=== PATIENT | male | born 1995 | race Caucasian/White ===

== ENCOUNTER 2024-01-10 09:51 | Outpatient (AMB) | payer BC, SELFPAY ==
[2024-01-10 10:05] VITALS: BP 100/68; PULSE 60; O2SAT 98; BMI 28.1
--- NOTE | 2024-01-10 10:05 | MHC.PC.OV ---
Vital Signs 01/10/24 10:05 Height 5 ft 9 in Weight 190 lb 4 oz BMI 28.1 BP 100/68 Blood Pressure Location Lt brachial Pulse 60 Pulse Source Pulse Oximeter Pulse Oximetry (%) 98 Oxygen Delivery Method Room Air Intake Visit Reasons: [employer], request a physical Intake Note: Patient is here as a new patient, would like a physical. Orthostatic vitals are as follows, laying, 112/62, p53, sitting, 118/72, p67, and standing 120/68 p81. Allergies No Known Allergies Allergy (Verified 01/10/24 10:10) Medication List - Last Reconciled 01/10/24 by Red Lema MD No Known Home Meds Tobacco use date assessed: 01/10/24 Dental Screening Dental Screen Date: 01/10/24 Did you have a dental visit in the last 12 months?: No Did you have a dental problem in the last 6 months where you did not have access to dental care?: No Was dental information given to patient?: Patient has dentist HPI [employer], request a physical HPI Details New Patient? ?? Prior PCP:? Clover Mooney Last office visit/CPE:? 5 + yrs ago Acute issue(s):? Occasional vertigo ?? PMHx:? SurgHx:? FHx:?Dad: DM. Paternal Uncles: DM. 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 EtOH: casual. No drugs [facility] Medical History (Updated 01/10/24 @ 10:42 by Breezy Siddiqi) Collar bone fracture Surgical History (Updated 01/10/24 @ 10:15 by Li Larson CMA) No pertinent past surgical history Family History (Updated 01/10/24 @ 10:18 by Li Larson CMA) Father Diabetes Mental health disorder Paternal Aunt Diabetes Paternal Uncle No problems noted. Paternal Grandfather Substance abuse in family Social History (Updated 01/10/24 @ 10:21 by Li Larson CMA) Household Members: None Both parents involved: No Caregiver staying overnight: No Housing: Condominium Are you a primary child care team lead to a significant other at home: No Do you presently have visiting nurse or other home services: No 75 years or older and lives alone: No Alcohol intake: current Alcohol type: beer Comment: weekends Patient Tobacco Use Status: Never used Tobacco e-Cigarette/Vaping Use: Never Used Use of substances other than those prescribed or required for medical reasons: No Have you been hit, kicked, punched, or otherwise hurt by someone within the past year? If so, by whom?: No Do you feel safe in your current relationship?: Yes Is there a partner from a previous relationship who is making you feel unsafe now?: No Are you made to feel afraid or neglected: No Special john needs: No Agree to transfusion: Yes Are you DNR?: No Advance Directives: No Advance Directives Information Provided: No Advance Directives on File: No Healthcare Proxy: No service: No Current occupational status: employed Current occupation: works for contractor Cognitive needs: No Hearing needs: No Vision needs: No Questionnaire PHQ-9 Over the last 2 weeks, how often have you been bothered by any of the following problems? 1. Little interest or pleasure in doing things: not at all 2. Feeling down, depressed, or hopeless: not at all 3. Trouble falling or staying asleep, or sleeping too much: several days 4. Feeling tired or having little energy: several days 5. Poor appetite or overeating: not at all 6. Feeling bad about yourself - or that you are a failure or have let yourself or your family down: not at all 7. Trouble concentrating on things, such as reading the newspaper or watching television: not at all 8. Moving or speaking so slowly that other people could have noticed. Or the opposite - being so fidgety or restless that you have been moving around a lot more than usual: not at all 9. Thoughts that you would be better off or of hurting yourself in some way: not at all Total score: 2 Depression Screening Interpretation: Negative Depression Screening Done: Yes 08941 - PHQ-9 Billing: Yes Source: Developed by Drs. Adonis Brush, Jessica Bullock, Aneesh Wang and colleagues, with an educational sedrick from [employer]. Thrive Questionnaire Date Thrive assessed: 01/10/24 I am a: Patient Within the past 12 months, did the food you bought not last and you didn't have the money to get more?: Never true Within the past 12 months, did you worry whether your food would run out before you got money to buy more?: Never true Do you have trouble paying for medicines?: No Do you have trouble getting transportation to medical appointments?: No Do you have trouble paying your heating and electricity bill?: No Do you have trouble taking care of your child, family member or friend?: No Do you have trouble with day-to-day activities such as bathing, preparing meals, shopping, managing finances, etc.?: No Are you currently unemployed and looking for a job?: No Are you interested in more education?: No THRIVE Score: 0 BEE-7 AMB Questionnaire BEE-7 Date BEE - 7 assessed: 01/10/24 Feeling nervous, anxious, or on edge: 0 = Not at all Not being able to stop or control worryin = Not at all Worrying too much about different things: 0 = Not at all Trouble relaxin = Not at all Being so restless that it is hard to sit still: 0 = Not at all Becoming easily annoyed or irritable: 0 = Not at all Feeling afraid as if something awful might happen: 0 = Not at all Total BEE-7 score (0-4 normal; 5-9 mild; 10-14 moderate; 15-21 severe): 0 Source: Developed by Drs. Adonis Brush, Jessica Bullock, Aneesh Wang and colleagues, with an educational sedrick from [employer]. BEE-7 Assessment Billing BEE-7 Assessment Tool: BEE-7 Assessment 06875 Review of Systems Const Denies chills, Denies fatigue, Denies fever(s), Denies headache(s) and Denies weakness Eyes Denies change in vision ENT Denies dizziness, Denies headache(s), Denies hearing loss, Denies nasal congestion, Denies sinus pain, Denies sinus pressure and Denies sore throat Card Denies chest pain, Denies lightheadedness, Denies dyspnea and Denies other (palpitations) Resp Denies cough, Denies dyspnea and Denies wheezing GI Denies abdominal pain, Denies melena, Denies hematochezia, Denies change in bowel habits, Denies dyspepsia and Denies nausea Denies hematuria and Denies dysuria Musc Denies abnormal gait, Denies myalgias, Denies arthralgias, Denies numbness and Denies tingling Skin/Breast Denies rash, Denies unusual bruising and Denies wounds Neuro Denies abnormal gait, Denies dizziness, Denies headache(s), Denies memory loss, Denies numbness, Denies Sensory deficit (Neuro), Denies tingling and Denies weakness Psych Denies anxiety, Denies depression and Denies memory loss Endo Denies cold intolerance, Denies fatigue, Denies heat intolerance, Denies polydipsia and Denies polyuria Jan/Lymph Denies easy bleeding and Denies easy bruising Aller/Immun Denies wheezing Physical exam (Primary Care) Vital Signs: Last Vital Signs Pulse 60 01/10/24 10:05 BP 100/68 01/10/24 10:05 Pulse Ox 98 01/10/24 10:05 Oxygen Delivery Method Room Air 01/10/24 10:05 BMI result Body Mass Index 28.1 Tobacco/Smoking Status: Tobacco use Status Tobacco use date assessed 01/10/24 01/10/24 10:17 Patient Tobacco Use Status Never used Tobacco 01/10/24 10:21 e-Cigarette/Vaping Use Never Used 01/10/24 10:21 PHQ-9: PHQ-9 Score PHQ-9: Total score 2 01/10/24 10:36 Depression Screening Interpretation: Negative Thrive Assessment: Date of Thrive Assessment Date Thrive assessed 01/10/24 01/10/24 10:26 Const General: no acute distress, well developed, alert and awake Nutritional Appearance: well nourished Orientation/consciousness: patient oriented x3 HENMT Head: Yes normocephalic and Yes atraumatic Ears: hearing grossly normal bilaterally and TM's normal bilaterally General nose exam: Normal external nose present and Normal nares present Mouth: Normal oral and palatal mucosa present and moist mucous membranes Teeth and gingiva: dentition normal Throat: Yes posterior oropharynx normal Eyes General: appearance normal, both eyes and all related structures Pupils: Equal, round and reactive pupils present and Pupil accommodation reflex normal EOM: EOMs intact bilaterally Neck Neck: Yes normal visual inspection, Yes no lymphadenopathy and Yes trachea midline Thyroid: Thyroid normal Carotids: no bruits Lymphatic: no lymphadenopathy noted Chest Chest palpation & inspection: normal inspection of the chest Resp Effort & Inspection: normal respiratory effort Auscultation: clear to auscultation bilaterally Cardio Rate: regular rate Rhythm: regular rhythm Heart sounds: S1 normal heart sound present, S2 normal heart sound present, no gallops, no murmurs and no rubs Bruits: no abdominal aortic bruits and no carotid bruits GI Palpation (GI): No Abdominal aortic bruit present, Soft to palpation, nontender, No hepatosplenomegaly present and No Rebound tenderness present Auscultation: normal bowel sounds General: Yes no CVA tenderness Back/Spine/Pelvis Back: no CVA tenderness Cervical Spine: cervical ROM normal and No Cervical spine tenderness Thoracic/Lumbar Spine: thoraco-lumbar ROM normal, No pain with thoraco-lumbar ROM, No thoracic spinal tenderness and No lumbar spinal tenderness Skin Lesions: no lesions Rashes: no rashes Trauma: no lacerations or abrasions Wounds: no wounds Nails: normal Neuro General: patient oriented x3 Cranial nerves: Yes Equal, round and reactive pupils present Cognition (Neuro): normal cognition Gait exam (Neuro): Normal gait present Motor exam (neuro): 5/5 motor strength present throughout Sensory Exam: No Sensory deficit (Neuro) Deep tendon reflexes (DTR's): Right patellar reflex intensity grade: 2+ and Left patellar reflex intensity grade: 2+ Extrem General: Yes normal to inspection and No edema Psych Appearance: grossly normal Affect: normal affect Attitude: cooperative Thought process: Normal thought process present Assessment and Plan Assessment & Plan (1) Adult general medical exam: Code(s): Z00.00 - Encounter for general adult medical examination without abnormal findings Plan: 28-year-old?male?presents?as?new?patient?for?complete?physical?exam (2) Pre-syncope: Code(s): R55 - Syncope and collapse Plan: Occasional?episodes?of?presyncope Possibly?brought?on?by?standing?up?quickly?or?moving?head?as?he?notes?that?sometimes?looking?down?a?flight?of?stairs?will?bring?this?on. Orthostatics: ?Normal.??No?orthostasis?by?blood?pressure?or?heart?rate EKG:??Sinus?bradycardia,?normal?axis,?no?hypertrophy,?nonspecific?ST-T-wave?abnormality Will?check?echocardiogram Advised?good?hydration Will?follow-up Orders: Orders Lipid Panel Today Z00.00 - Encounter for general adult medical examination without abnormal findings Microalbumin, Random (w Creat) Today I10 - Essential (primary) hypertension CT NG by PCR Today Z11.3 - Encounter for screening for infections with a predominantly sexual mode of transmission HIV Ab/Ag Today Z11.3 - Encounter for screening for infections with a predominantly sexual mode of transmission Complete Blood Count Auto Diff Today R55 - Syncope and collapse, Z00.00 - Encounter for general adult medical examination without abnormal findings Comprehensive [place]. Panel Fast Today Z00.00 - Encounter for general adult medical examination without abnormal findings TSH reflex Free T4 Today Z00.00 - Encounter for general adult medical examination without abnormal findings UA and rflx microscopic Today Z00.00 - Encounter for general adult medical examination without abnormal findings Hepatitis B,C Profile Today Z11.3 - Encounter for screening for infections with a predominantly sexual mode of transmission Syphilis Screen Today Z11.3 - Encounter for screening for infections with a predominantly sexual mode of transmission CA echo transthoracic complete Today R55 - Syncope and collapse Coding Level of Care Code New Pt Level 3 (56856) New Pt Prev Care 18-39yr(86332 Diagnoses Adult general medical exam Z00.00 Pre-syncope R55 Additional Codes BEE-7 Assessment Billing - BEE-7 Assessment Tool: BEE-7 Assessment 57237 ([id number])
== END 2024-01-10 11:12 | disposition home or self-care (01) ==
PROVIDERS: PCP Family Medicine; Visit Provider Family Medicine
DX: Z00.00 Encounter for general adult medical examination without abnormal findings (principal); R55 Syncope and collapse
CPT/HCPCS: 93000; 99203; 99385

== ENCOUNTER 2024-01-22 11:23 | Outpatient (REF) | payer BC, SELFPAY ==
[2024-01-22 14:17] LABS: MANUAL DIFF FLAG NO
[2024-01-22 14:21] LABS: Appearance Urine Clear; Color Urine Yellow; Glucose Urine UA Negative (Negative); Leukocyte Esterase Urine Negative (Negative); Nitrite Urine Negative (Negative); Urine Blood Negative (Negative); Urine Ketones Negative (Negative); Urine Protein Trace mg/dL (Neg-Trace)
[2024-01-22 14:28] LABS: Basophils Percent Auto 0.6 % (0-2); Eosinophils Absolute Auto 0.2 X10*3/uL (0.0-0.4); Eosinophils Percent Auto 3.1 % (0-4); Hematocrit 46.8 % (42.0-52.0); Hemoglobin 16.4 g/dl (14.0-18.0); Imm Gran Abs Auto 0.02 X10*3/uL (0.00-0.03); Imm Gran Pct Auto 0.4 % (0.0-0.4); Lymphocytes Absolute Auto 1.4 X10*3/uL (1.2-4.9); Lymphocytes Percent Auto 29.4 % (20-40); Mean Corpuscular Hemoglobin 31.5 pg (27.0-33.0); Mean Platelet Volume 10.9 fL (9.4-12.4); Monocytes Absolute Auto 0.5 X10*3/uL (0.1-1.2); Monocytes Percent Auto 9.8 % (2-11); Neutrophils Absolute Auto 2.7 x10*3/uL (2.0-8.3); Neutrophils Percent Auto 56.7 % (45-73); Platelet Count 250 X10*3/uL (160-400); Red Cell Distribution Width 12.4 % (11.0-16.0); White Blood Count 4.8 X10*3/uL (4.8-10.8)
[2024-01-22 14:51] LABS: Creatinine Urine 229.73 mg/dL; Microalbum/Creatinine Ratio Ur 5.6 ug/mg cr (<30)
[2024-01-22 15:06] LABS: Alanine Aminotransferase 24 U/L (0-40); Albumin Level 4.5 g/dL (3.5-5.0); Alkaline Phosphatase 68 U/L (39-117); Anion Gap 11 (12-20); Aspartate Amino Transferase 24 U/L (5-37); Bilirubin Total 0.9 mg/dL (0.0-1.0); Blood Urea Nitrogen 7 mg/dL (9-16); Calcium 9.5 mg/dL (8.4-10.2); Carbon Dioxide 25 mmol/L (22-29); Chloride 108 mmol/L (96-108); Cholesterol 184 mg/dL (<200); Estimated Glomerular Filt Rate > 60; Glucose Fasting 82 mg/dL (60-99); HDL Cholesterol 51 mg/dL (>40); LDL Cholesterol Calculated 121 mg/dL (<100); Potassium 3.9 mmol/L (3.3-5.1); Sodium 140 mmol/L (135-145); Total Protein 6.7 g/dL (6.5-8.0); Triglycerides 62 mg/dL (<150)
[2024-01-22 15:13] LABS: TSH reflex Free T4 1.61 uIU/mL (0.32-4.0)
[2024-01-23 07:26] LABS: HBS Num1 2.56 mIU/mL (0-7.99); HBc Num1 0.15 S/CO (0.00-0.79); HBsAGNum1 0.31 S/CO (0.00-0.99); HIV AB/AG Nonreactive (Nonreactive); HIV Num 1 0.07 S/CO (0.00-0.99); Hepatitis B Core Antibody Nonreactive (Nonreactive); Hepatitis B Surface Antigen Negative (Negative); ~HepC Num1 0.09 S/CO (0.00-0.79); ~Hepatitis B Surface Antibody NONREACTIVE (Nonreactive); ~Hepatitis C Antibody Nonreactive (Nonreactive)
[2024-01-23 07:49] LABS: Syphilis Screen Nonreactive (Nonreactive)
== END 2024-01-22 11:24 | disposition home or self-care (01) ==
LOC: HO.WFDLDS 11:23
PROVIDERS: Visit Provider Family Medicine
DX: Z00.00 Encounter for general adult medical examination without abnormal findings (principal); I10 Essential (primary) hypertension; Z11.3 Encounter for screening for infections with a predominantly sexual mode of transmission; R55 Syncope and collapse
CPT/HCPCS: 36415; 80053; 80061; 81003; 82043; 82570; 84443; 85025; 86704; 86706; 86780; 86803; 87340; 87389

== ENCOUNTER → 2024-02-16 08:05 | Outpatient (REF) | payer BC, SELFPAY ==
--- NOTE | 2024-02-16 08:09 | CA_ITS ---
Transthoracic Echocardiogram Patient (Last, First, Middle): Jaiden Jang, Gender: Male Date of : 1995 Age: 28 Procedure Date: 02/16/2024 Procedure Type: Transthoracic Echocardiogram Location: OP Height: 175.26 cm Weight: 88.45 kg BSA: 2.04 m2 Heart Rate: 60 bpm BP: 115 / 60 mmHg Avionics Engineer: CHAUNCEY Referring MD: Red Lema MD Symptoms: R55 - Syncope and collapse Study Quality: Fair ECG Rhythm: Sinus Conclusions: - The left ventricular systolic function is normal. The calculated ejection fraction is 57% by biplane method. - No obvious valvular pathology seen on this study. Findings Left Ventricle Normal left ventricular cavity size. There is normal left ventricular wall thickness. The left ventricular systolic function is normal. The calculated ejection fraction is 57% by biplane method. There is no evidence of regional wall motion abnormalities. Diastolic function is normal for age. Right Ventricle Normal right ventricular cavity size and systolic function. Atria Both atria are normal in size. Aortic Valve There is a normal trileaflet aortic valve. There is no aortic valve stenosis. There is no aortic valve regurgitation. Mitral Valve The mitral valve appears normal. There is no mitral valve regurgitation. There is no mitral valve stenosis. Pulmonic Valve The pulmonic valve is likely normal. Tricuspid Valve Normal tricuspid valve structure. There is trace tricuspid valve regurgitation. There is no evidence of pulmonary hypertension. Great Vessels The asc aorta is normal in size. Venous The inferior vena cava is normal in size and collapses greater than 50% with inspiration. Pericardium/Pleural There is no evidence of pericardial effusion. Prior Study Comparison No prior study available for comparison. Recommendations, Care & Conclusions No obvious valvular pathology seen on this study. Measurements 2D Linear Measurements IVSd: 1.00 0.6-0.9/0.6-1.0 cm LVIDd: 4.79 3.9-5.3/4.2-5.9 cm LVIDd Index: 2.35 2.4-3.2/2.2-3.1 cm/m2 LVIDs: 2.75 2.0-3.6 cm LVPWd: 0.97 0.7-1.1 cm LA Diam: 3.60 2.7-3.8/3.0-4.0 cm LAIDs Index: 1.76 1.5-2.3 cm/m2 LV Mass: 206.40 67-162/88-224 g LV Mass Index: 101.18 43-95/49-115 g/m2 LVOT Diam: 2.30 3.0+(-)1.3 cm 2D Systolic Function EF 4C: 57.00 >55% EF 2C: 56.50 >55% EF BiP: 56.80 >55% Mitral Valve MV Pk E: 0.69 MV PK A: 0.38 MV Decel Time: 274.00 E/A: 1.80 E'Lateral: 14.50 E'Medial: 10.60 E/E' Med: 6.50 E/E' Lat: 4.80 PHT: 80.00 MVA PHT: 2.75 Decel Owen: 2.53 Aortic Valve AoV Pk Zeb: 1.40 AoV Mn Zeb: 0.95 AoV VTI: 0.29 AoV Pk Grad: 8.00 Aov Mn Grad: 4.00 CHRIS Cont.VTI: 2.93 LVOT LVOT Pk Zeb: 1.01 LVOT Mn Zeb: 0.66 LVOT VTI: 0.21 LVOT Pk Grad: 4.00 LVOT Mn Grad: 2.00 LVOT Diam: 2.30 LVOT Area: 4.15 Diastolic Function MV Pk E: 0.69 MV Pk A: 0.38 E/A: 1.80 E'Medial: 10.60 E/E' Med: 6.50 E' Laterial: 14.50 E/E' Lat: 4.80 Right Ventricle TAPSE (mm): 17.80 TVS' Zeb: 12.60 Tricuspid Valve TR Pk Zeb: 1.76 TR Pk Grad: 12.00 RA Press: 3.00 RVSP: 15.00 Great Vessels Aorta Sinus of Valsalva: 3.20 2.0-3.5 cm Ao Asc: 3.20 2.1-3.4 cm Pulmonary Valve PV Pk Zeb: 1.17 Peak PV Grad: 5.00 Updated in Other Vendor System with Status of Final Erasmo Neal MD electronically signed on 02/17/2024 11:18:49 AM with status of Final
== END ==
LOC: HO.CARD 08:05
PROVIDERS: Visit Provider Family Medicine
DX: R55 Syncope and collapse (principal)
CPT/HCPCS: 93306

== ENCOUNTER → 2024-02-16 08:09 | Outpatient (BNV) | payer BC, SELFPAY | PROVIDERS: Visit Provider Internal Medicine | DX: R55 Syncope and collapse (principal) | CPT/HCPCS: 93306 ==

== ENCOUNTER 2024-02-16 13:13 | Outpatient (AMB) | payer BC, SELFPAY ==
--- NOTE | 2024-02-16 13:13 | MHC.PC.OV ---
Intake Visit Reasons: f/u CPE-labs via telemedicine Allergies No Known Allergies Allergy (Verified 02/16/24 13:13) Tobacco use date assessed: 01/10/24 Dental Screening Dental Screen Date: 01/10/24 HPI f/u CPE-labs via telemedicine HPI Details 28 y/o male presents to f/u CPE-labs via telemedicine. Labs drawn 01/22/24. Reviewed labs with pt. Triglycerides 62. TC 184. LDL 121. HDL 51. Has had complaints of pre-syncope. Pt notes he had his echocardiogram today. Has not been read yet. [facility] Medical History Collar bone fracture Surgical History No pertinent past surgical history Family History Father Diabetes Mental health disorder Paternal Aunt Diabetes Paternal Uncle No problems noted. Paternal Grandfather Substance abuse in family Social History Household Members: None Both parents involved: No Caregiver staying overnight: No Housing: Condominium Are you a primary customer care manager to a significant other at home: No Do you presently have visiting nurse or other home services: No 75 years or older and lives alone: No Alcohol intake: current Alcohol type: beer Comment: weekends Patient Tobacco Use Status: Never used Tobacco e-Cigarette/Vaping Use: Never Used Special john needs: No Agree to transfusion: Yes service: No Current occupational status: employed Current occupation: works for contractor Cognitive needs: No Hearing needs: No Vision needs: No Questionnaire PHQ-9 Over the last 2 weeks, how often have you been bothered by any of the following problems? 1. Little interest or pleasure in doing things: not at all 2. Feeling down, depressed, or hopeless: not at all 3. Trouble falling or staying asleep, or sleeping too much: several days 4. Feeling tired or having little energy: several days 5. Poor appetite or overeating: not at all 6. Feeling bad about yourself - or that you are a failure or have let yourself or your family down: not at all 7. Trouble concentrating on things, such as reading the newspaper or watching television: not at all 8. Moving or speaking so slowly that other people could have noticed. Or the opposite - being so fidgety or restless that you have been moving around a lot more than usual: not at all 9. Thoughts that you would be better off or of hurting yourself in some way: not at all Total score: 2 Depression Screening Interpretation: Negative Depression Screening Done: Yes 87513 - PHQ-9 Billing: Yes Source: Developed by Drs. Adonis Brsuh, Aneesh Steen and colleagues, with an educational sedrick from [employer] Thrive Questionnaire Date Thrive assessed: 01/10/24 I am a: Patient Within the past 12 months, did the food you bought not last and you didn't have the money to get more?: Never true Within the past 12 months, did you worry whether your food would run out before you got money to buy more?: Never true Do you have trouble paying for medicines?: No Do you have trouble getting transportation to medical appointments?: No Do you have trouble paying your heating and electricity bill?: No Do you have trouble taking care of your child, family member or friend?: No Do you have trouble with day-to-day activities such as bathing, preparing meals, shopping, managing finances, etc.?: No Are you currently unemployed and looking for a job?: No Are you interested in more education?: No THRIVE Score: 0 BEE-7 AMB Questionnaire BEE-7 Date BEE - 7 assessed: 01/10/24 Feeling nervous, anxious, or on edge: 0 = Not at all Not being able to stop or control worryin = Not at all Worrying too much about different things: 0 = Not at all Trouble relaxin = Not at all Being so restless that it is hard to sit still: 0 = Not at all Becoming easily annoyed or irritable: 0 = Not at all Feeling afraid as if something awful might happen: 0 = Not at all Total BEE-7 score (0-4 normal; 5-9 mild; 10-14 moderate; 15-21 severe): 0 Source: Developed by Drs. Adonis Brush, Aneesh Steen and colleagues, with an educational sedrick from [employer]. BEE-7 Assessment Billing BEE-7 Assessment Tool: BEE-7 Assessment 47310 Review of Systems Const Denies chills, Denies fatigue, Denies fever(s), Denies headache(s) and Denies weakness ENT Denies dizziness and Denies headache(s) Card Denies dyspnea Resp Denies cough, Denies dyspnea, Denies wheezing and Denies other (shortness of breath) Musc Denies numbness and Denies tingling Neuro Denies dizziness, Denies headache(s), Denies numbness, Denies tingling and Denies weakness Psych Denies anxiety and Denies depression Endo Denies fatigue Aller/Immun Denies wheezing Physical exam (Primary Care) Tobacco/Smoking Status: Tobacco use Status Tobacco use date assessed 01/10/24 02/16/24 13:14 Patient Tobacco Use Status Never used Tobacco 02/16/24 13:14 e-Cigarette/Vaping Use Never Used 02/16/24 13:14 PHQ-9: PHQ-9 Score PHQ-9: Total score 2 02/16/24 13:53 Depression Screening Interpretation: Negative Thrive Assessment: Date of Thrive Assessment Date Thrive assessed 01/10/24 02/16/24 13:14 Telehealth Telehealth Telehealth Platform: Telephone Location of provider rendering services: practice address Location of patient: address on file Patient Identification confirmed using: Name, : Yes Telehealth method: voice only Patient verbally consented to treatment: Yes Patient verbally consented to billing insurance company: Yes Patient informed of any privacy concerns related to visit: Yes Minutes spent on Phone/Video with Pt.: 6 Assessment and Plan Assessment & Plan (1) Pre-syncope: Code(s): R55 - Syncope and collapse Plan: Lab?work?does?not?explain?patient's?symptoms He?had?an?echocardiogram?today?but?results?are?not?available. We?will?follow-up?in?a?few?weeks; I?will?call?him?if?action?is?required?sooner Continue?good?hydration?as?discussed?at?prior?visit (2) Elevated LDL cholesterol level: Code(s): E78.00 - Pure hypercholesterolemia, unspecified Plan: Mildly?elevated?LDL?cholesterol We?can?monitor?this Advised?a?diet?lower?in?cholesterol No?indication?for?medicine?at?this?time Coding Level of Care Code Tele Est Pt Level 2 (94078) Diagnoses Pre-syncope R55 Elevated LDL cholesterol level E78.00 Additional Codes BEE-7 Assessment Billing - BEE-7 Assessment Tool: BEE-7 Assessment 01035 ([id number])
== END 2024-02-16 14:18 | disposition home or self-care (01) ==
LOC: HO.HMGFM 13:13
PROVIDERS: PCP Family Medicine; Visit Provider Family Medicine
DX: R55 Syncope and collapse (principal); E78.00 Pure hypercholesterolemia, unspecified
CPT/HCPCS: 99441

== ENCOUNTER 2024-12-17 15:36 | Outpatient (RCR) | payer BC, SELFPAY | END 2024-12-17 15:49 | disposition home or self-care (01) | LOC: HO.OT 15:36 | PROVIDERS: PCP Family Medicine; Visit Provider Physician Assistant | DX: S61.012S Laceration without foreign body of left thumb without damage to nail, sequela (principal) | CPT/HCPCS: 97035; 97110; 97140; 97165; 97535 ==